=== PATIENT | male | born 1990 | race African-American/Black ===

== ENCOUNTER 2023-07-20 12:46 | Emergency (ER) | payer MEDICAID, SELFPAY ==
[2023-07-20 12:48] VITALS: BP 136/10; PULSE 108; RESP 16; TEMP 36.4; O2SAT 99; BMI 27.4
--- NOTE | 2023-07-20 13:39 | EDS_ITS ---
HPI HPI - GI History of Present Illness Chief Complaint: Abd Pain Informant: patient Abdominal Pain/Flank Pain Onset: Days (2) Context: Gradual Onset Timing: Waxes and wanes Quality: Cramping Location: LUQ and LLQ Worsened by: Nothing Relieved by: Nothing Nausea/Vomiting/Emesis GI Symptom: Positive for Nausea and Vomiting Quality: Positive for Nonbilious Diarrhea/Melena/Hematochezia GI Symptom: Negative for Diarrhea, Melena or Hematochezia Associated Symptoms Associated Symptoms: Negative for Dysuria, Frequency or Hematuria Narrative Narrative: Patient presents with left-sided abdominal pain that has been getting worse over the past 2 days. Patient states his pain waxes and wanes. Patient states that it feels like a cramping and tightening in his abdomen. Patient states it is mainly over the left side of his abdomen. Patient admits to some nausea and vomiting. Patient admits to some constipation. Patient denies any dysuria or hematuria. Patient denies any hematemesis. Patient states she is on Suboxone for opiate dependence. [facility] Medical History No acute medical problems no medical history Home Medications buprenorphine 8 mg-naloxone 2 mg sublingual tablet 1 tab sublingual TID 07/20/23 [History Last Taken Unknown] Allergy/AdvReac Type Severity Reaction Status Date / Time No Known Allergies Allergy Verified 07/20/23 12:47 Social History (Updated 07/20/23 @ 14:[address] Gabe Riojas DO) Smoking Status: Never smoker substance use type: former substance user ROS ROS ED Constitutional Constitutional ED: Denies chills or fever(s) Eyes Eyes: Denies blurry vision or change in vision ENT ENT ED: Reports sore throat; Denies rhinorrhea Cardiovascular Cardiovascular: Denies chest pain or palpitations Respiratory/Chest Respiratory/Chest: Denies cough or dyspnea Gastrointestinal Gastrointestinal: Reports abdominal pain, nausea and vomiting Genitourinary Genitourinary ED: Denies dysuria or hematuria Musculoskeletal Musculoskeletal: Denies back pain or neck pain Integumentary Denies abscess or rash Neurologic Neurologic: Denies headache(s) or weakness Allergic/Immunologic Allergic/Immunologic ED: Denies mouth swelling or urticaria EXAM Physical Exam Const Vital Signs: 07/20/23 12:48 Temperature 97.5 F L Temperature Source Temporal Pulse Rate 108 H Respiratory Rate 16 Blood Pressure 136/10 H Blood Pressure Mean 52 Pulse Ox 99 Oxygen Delivery Method Room Air Positive well nourished and well developed General Appearance ED: well developed and NAD HEENT Reports moist mucous membranes Neck supple and no JVD Resp normal respiratory effort and clear to auscultation bilaterally Cardio regular rate and regular rhythm GI non-distended Palpation: soft and tender LLQ and LUQ; Negative for guarding or rebound tenderness present Neuro CN's II-XII intact bilaterally, moves all extremities and no sensory deficits noted Sensorium / Orientation: alert Motor Exam: strength 5/5 throughout Psych mental status grossly normal MDM MDM MDM Narrative Medical decision making narrative: Differential diagnosis includes constipation, bowel obstruction, and gastritis. Acute abdominal x-rays will be obtained to assess for bowel obstruction and constipation. Radiography Diagnostic Testing: Acute abdominal x-rays were obtained. There are 4 views. On my independent interpretation, there is no evidence of bowel obstruction or perforation. There is a large amount of stool throughout the colon. There is no acute cardiopulmonary process. Radiologist also interpreted the x-rays and agrees. Treatment and Re-Evaluation :: Patient was advised of his findings. Patient preferred to do a enema at home. Patient was instructed to get a fleets enema and take this at home. Patient was also instructed to use MiraLAX as needed. Patient was also instructed to use Colace daily. Patient was instructed to follow-up with his primary care physician in 5 to 7 days. Patient understood and was agreeable with the plan. All questions were answered. Discharge Plan Triage Chief Complaint: Abd Pain ED Provider: Gabe Riojas Dx/Rx/DC Orders Clinical Impression: Abdominal pain, Constipation Instructions: ED Constipation (Adult) Prescriptions: No Action buprenorphine-naloxone 8-2 mg tablet, sublingual 1 tab sublingual TID Primary Care Provider: Care Physician,No Primary Referrals: Dinesh Alberto MD [Med Staff - Active Staff] - 5-7 Days Care Physician,No Primary [Primary Care Provider] - Activity Restrictions/Additional Instructions: Get a fleets enema [id number] and use this as needed for constipation. You may also use MiraLAX as needed for constipation. Use Colace daily as a stool softener. Disposition Disposition: Home, Self Care
--- NOTE | 2023-07-20 13:46 | RAD_ITS ---
STUDY: X-RAY - ACUTE ABDOMINAL SERIES REASON FOR EXAM: Male, 32 years old. Abdominal pain TECHNIQUE: Single view of the chest. Supine, upright view(s) of the abdomen were obtained. COMPARISON: None. FINDINGS: The lungs are clear. There are no pleural effusions. There is no pneumothorax. The heart is normal in size. There is no bowel obstruction. There is a large amount of stool in the colon, consistent with constipation. There is no free air. The visualized osseous structures are within normal limits. RAD/Acute Abdomen Inc Chest IMPRESSION: Clear lungs. No bowel obstruction. Electronically Signed: Myles Arias MD at 14:14 EDT ,
[2023-07-20 14:50] VITALS: BP 144/104; PULSE 91; RESP 18; O2SAT 98
== END 2023-07-20 14:51 | disposition home or self-care (01) ==
PROVIDERS: Emergency Provider Emergency Medicine; Visit Provider Emergency Medicine
DX: R10.9 Unspecified abdominal pain (principal); K59.00 Constipation, unspecified
CPT/HCPCS: 74022; 99282

== ENCOUNTER 2023-07-22 19:59 | Emergency (ER) | payer MEDICAID, SELFPAY ==
[2023-07-22 20:00] VITALS: BP 167/112; PULSE 110; RESP 16; TEMP 36.6; O2SAT 96; BMI 26.6
--- NOTE | 2023-07-22 20:12 | CT_ITS ---
EXAM: CT ABDOMEN AND PELVIS WITH INTRAVENOUS CONTRAST CLINICAL INDICATION: llq abdominal pain TECHNIQUE: Helically acquired images were obtained of the abdomen and pelvis with intravenous contrast. This CT exam was performed using one or more of the following dose reduction techniques: automated exposure control, adjustment of the mA and/or kV according to patient size, and/or use of iterative reconstruction technique. CONTRAST: IV 100mL Isovue-370 COMPARISON: Acute abdominal series, 07/20/2023 FINDINGS: LOWER THORAX: No significant abnormality. Lung bases are clear. No cardiomegaly. No significant pericardial effusion. ABDOMEN: LIVER: No significant abnormality. Homogeneous. No focal mass. GALLBLADDER AND BILE DUCTS: No significant abnormality. No calcified gallstones. No gallbladder distention or wall edema. No intra- or extrahepatic biliary ductal dilation. PANCREAS: No significant abnormality. No focal cystic or solid mass. SPLEEN: No significant abnormality. Normal size without focal cystic or solid mass. ADRENALS: No significant abnormality. No nodules. KIDNEYS AND URETERS: No significant abnormality. Normal renal size and position. No hydronephrosis. STOMACH AND BOWEL: Moderate to large amount of stool throughout the colorectal distribution. No stomach or bowel distention. No focal inflammatory change. PELVIS: APPENDIX: No evidence of acute appendicitis. BLADDER: No significant abnormality. REPRODUCTIVE: Normal as visualized. No mass. ABDOMEN and PELVIS: INTRAPERITONEAL SPACE: No significant abnormality. No ascites or other fluid collection. No free air. BONES/JOINTS: No significant abnormality. No suspicious lytic or blastic abnormality. SOFT TISSUES: No significant abnormality. No discrete abdominal or pelvic wall hernia. VASCULATURE: No significant abnormality. Abdominal aorta is non-dilated. LYMPH NODES: No significant abnormality. No enlarged lymph nodes. CT/Abdomen/Pelvis W IV Cont ONLY IMPRESSION: Moderate to large amount of stool throughout the colorectal distribution. No bowel obstruction. No additional acute findings. Electronically Signed: Rolando Enriquez DO at 22:01 EDT ,
--- NOTE | 2023-07-22 20:18 | EDS_ITS ---
HPI <Dr. Alvarado Bishop DO - Last Filed: 07/23/23 15:08> HPI - GI History of Present Illness Chief Complaint: Constipation Narrative Narrative: 82-year-old male with constipation for 15 days. He states he has had little flatus. Has not had a bowel movement. He was seen a couple of days ago and put on stool softeners and did home enemas with no relief. He states that he has left lower quadrant pain and is abdomen feels like it is bulging in the left lower quadrant. He states he tried to disimpact himself but cannot feel stool in the rectal vault. Denies any history of abdominal surgeries. Patient is on Suboxone but does not have a history of constipation like this. [facility] <Dr. Alvarado Bishop DO - Last Filed: 07/23/23 15:08> [facility] Medical History No acute medical problems Home Medications buprenorphine 8 mg-naloxone 2 mg sublingual tablet 1 tab sublingual TID 07/20/23 [History Last Taken Unknown] polyethylene glycol 3350 17 gram/dose oral powder (Miralax) 17 g PO DAILY PRN constipation #238 grams 07/22/23 [Rx Last Taken Unknown] Allergy/AdvReac Type Severity Reaction Status Date / Time No Known Allergies Allergy Verified 07/22/23 20:02 Social History Smoking Status: Never smoker substance use type: former substance user EXAM <Dr. Alvarado Bishop DO - Last Filed: 07/23/23 15:08> Physical Exam Const Vital Signs: 07/22/23 20:00 07/22/23 21:56 07/22/23 23:07 Temperature 98 F Temperature Source Temporal Pulse Rate 110 H 90 Respiratory Rate 16 18 18 Blood Pressure 167/112 H 154/90 H Blood Pressure Mean 130 111 Pulse Ox 96 Oxygen Delivery Method Room Air General Appearance ED: Negative for pallor HEENT Reports normocephalic and head/scalp atraumatic Eyes PERRL and EOMs intact bilaterally Neck no lymphadenopathy and supple Chest Wall inspection of chest normal and palpation of chest normal Resp normal respiratory effort and clear to auscultation bilaterally Auscultation: Negative for rales, rhonchi or wheezes Cardio regular rate and regular rhythm GI Palpation: soft and tender LLQ, LUQ and periumbilical Narrative: Deferred Extremity normal to inspection Neuro oriented x3 and CN's II-XII intact bilaterally Sensorium / Orientation: alert Motor Exam: strength 5/5 throughout Psych mental status grossly normal Attitude: No agitated Skin no rashes or lesions noted and no wounds General Skin Exam: Negative for jaundice or pallor <Dr. Gabe Riojas, DO - Last Filed: 07/22/23 23:26> Physical Exam Const Vital Signs: 07/22/23 20:00 07/22/23 21:56 07/22/23 23:07 Temperature 98 F Temperature Source Temporal Pulse Rate 110 H 90 Respiratory Rate 16 18 18 Blood Pressure 167/112 H 154/90 H Blood Pressure Mean 130 111 Pulse Ox 96 Oxygen Delivery Method Room Air MDM <Dr. Alvarado Bishop, DO - Last Filed: 07/23/23 15:08> [facility] Narrative Medical decision making narrative: Patient presenting with constipation for 2 weeks. He is on a bowel movement. He is passing some flatus. Patient denies any previous abdominal surgeries. Patient complaining of left lower quadrant abdominal pain and left upper quadrant abdominal pain. Differential includes constipation, bowel obstruction, dehydration, electro abnormalities. I did give him Toradol and dicyclomine b ecause he was complaining of abdominal cramping. Patient does not want narcotics because he is in recovery. CBC and BMP were obtained and these were unremarkable. CT of the abdomen pelvis shows diffuse constipation. Patient was given a soapsuds enema. We will try to get him to have a bowel movement and discharge him home. Impression: 1. Abdominal pain 2. Constipation Lab Data Attestation: I reviewed the patient's lab results. Labs: Laboratory Results - last 24 hr 07/22/23 21:00 WBC 8.2 RBC 5.25 Hgb 13.1 Hct 40.7 MCV 77.5 L MCH 25.0 L MCHC 32.2 RDW Std Deviation 36.7 RDW Coeff of Michael 13.0 Plt Count 300 MPV 8.9 Immature Gran % (Auto) 0.200 Neut % (Auto) 57.2 Lymph % (Auto) 36.2 [place] % (Auto) 4.9 Eos % (Auto) 1.1 Baso % (Auto) 0.4 Absolute Neuts (auto) 4.7 Absolute Lymphs (auto) 2.95 Nucleated RBC % 0 Sodium 138 Potassium 3.8 Chloride 104 Carbon Dioxide 29.0 Anion Gap 5 BUN 10 Creatinine 0.94 Estim Creat Clear Calc 102.75 Est GFR (MDRD) Af Amer 120 Est GFR (MDRD) Non-Af 99 BUN/Creatinine Ratio 10.7 Glucose 93 Calcium 8.7 Radiography Diagnostic Testing: Clinical Impression(s) from Imaging Studies Abdomen/Pelvis CT 07/22/23 20:12 IMPRESSION: Moderate to large amount of stool throughout the colorectal distribution. No bowel obstruction. No additional acute findings. Electronically Signed: Rolando Enriquez DO at 22:01 EDT , <Dr. Gabe Riojas, DO - Last Filed: 07/22/23 23:26> [facility] Lab Data Labs: Laboratory Results - last 24 hr 07/22/23 21:00 WBC 8.2 RBC 5.25 Hgb 13.1 Hct 40.7 MCV 77.5 L MCH 25.0 L MCHC 32.2 RDW Std Deviation 36.7 RDW Coeff of Michael 13.0 Plt Count 300 MPV 8.9 Immature Gran % (Auto) 0.200 Neut % (Auto) 57.2 Lymph % (Auto) 36.2 [place] % (Auto) 4.9 Eos % (Auto) 1.1 Baso % (Auto) 0.4 Absolute Neuts (auto) 4.7 Absolute Lymphs (auto) 2.95 Nucleated RBC % 0 Sodium 138 Potassium 3.8 Chloride 104 Carbon Dioxide 29.0 Anion Gap 5 BUN 10 Creatinine 0.94 Estim Creat Clear Calc 102.75 Est GFR (MDRD) Af Amer 120 Est GFR (MDRD) Non-Af 99 BUN/Creatinine Ratio 10.7 Glucose 93 Calcium 8.7 Radiography Diagnostic Testing: Clinical Impression(s) from Imaging Studies Abdomen/Pelvis CT 07/22/23 20:12 IMPRESSION: Moderate to large amount of stool throughout the colorectal distribution. No bowel obstruction. No additional acute findings. Electronically Signed: Rolando Enriquez DO at 22:01 EDT , Treatment and Re-Evaluation :: Care of the patient was turned over to me. Patient received the soapsuds enema. Patient had results with this. Patient felt better and wanted to go home. Patient was discharged. Patient was instructed to take MiraLAX as needed for constipation. Patient understood and was agreeable with the plan. All questions were answered. Discharge Plan Triage Chief Complaint: Constipation ED Provider: Alvarado Bishop Dx/Rx/DC Orders Instructions: ED Constipation (Adult) Prescriptions: New polyethylene glycol 3350 [Miralax] 17 gram/dose powder 17 g PO DAILY PRN (Reason: constipation) Qty: 238 0RF No Action buprenorphine-naloxone 8-2 mg tablet, sublingual 1 tab sublingual TID Primary Care Provider: [facility] ,Out of Referrals: [facility] Doctor,Out of [Primary Care Provider] - Disposition Disposition: Home, Self Care Discharge Date/Time: 07/22/23 23:11
[2023-07-22] MEDS: Ketorolac 15 MG/ML Vial IV (21:04)
[2023-07-22] MEDS: 0.9% Normal Saline (1000mL) 1,000 ML 1000 ML IV (21:04)
[2023-07-22] MEDS: Dicyclomine 20 MG/2 ML Vial IM (21:06)
[2023-07-22 21:11] LABS: Absolute Lymphocyte Count 2.95 X10^3/uL (0.83-4.51); Absolute Neutrophil Count 4.7 X10^3/uL (2.0-7.7); Basophil# 0.03 X10^3/uL; Basophil% 0.4 % (0-1); Eosinophil# 0.09 X10^3/uL; Eosinophils% 1.1 % (0-5); Hematocrit 40.7 % (40-54); Hemoglobin 13.1 g/dL (13.0-16.5); Lymphocyte # 2.95 X10^3/ul (0.83-4.51); Lymphocyte % 36.2 % (19-41); Mean Corp Hgb Conc 32.2 g/dL (32-36); Mean Corpuscular Volume 77.5 fL (80-94); Mean Platelet Vol. 8.9 fl (6.2-12.0); Monocyte% 4.9 % (0-10); NRBC Flagged by Analyzer 0 % (0-5); Neutrophil # 4.67 X10^3/uL (2.7-7.7); Neutrophil % 57.2 % (47-70); Platelet Count 300 K/mm3 (150-450); RBC Distribution Width SD 36.7 fl (35.1-43.9); Red Blood Count 5.25 M/mm3 (4.6-6.2); White Blood Count 8.2 K/mm3 (4.4-11.0)
[2023-07-22 21:25] LABS: Anion Gap 5 (5-15); BUN 10 mg/dL (7-18); BUN/Creat Ratio 10.7 RATIO (10-20); Calcium,Total 8.7 mg/dL (8.5-10.1); Chloride 104 mmol/L (98-107); Creatinine, Serum 0.94 mg/dL (0.70-1.30); EST Glomerular Filtration Rate 99 mL/min (>60); Est Glom Filt Rate - Afr Amer 120 mL/min (>60); Estimated Creatinine Clearance 102.75 ml/min; Glucose 93 mg/dL (74-106); Potassium 3.8 mmol/L (3.5-5.1); Sodium Level 138 mmol/L (136-145)
[2023-07-22 21:56] VITALS: RESP 18
[2023-07-22 23:07] VITALS: BP 154/90; PULSE 90; RESP 18
== END 2023-07-22 23:11 | disposition home or self-care (01) ==
PROVIDERS: Emergency Provider Student in an Organized Health Care Education/Training Program; Visit Provider Student in an Organized Health Care Education/Training Program
DX: R10.9 Unspecified abdominal pain (principal); K59.00 Constipation, unspecified
CPT/HCPCS: 74177; 80048; 85025; 96361; 96372; 96374; 99283; J7030; Q9967; A4216